=== PATIENT | male | born 1995 | race Caucasian/White ===

== ENCOUNTER 2018-08-02 00:33 | Inpatient (IN) ==
[2018-08-02] MEDS ORDERED: SODIUM CHLORIDE 0.9% 1,000 ML IV STA (00:46)
[2018-08-02 00:59] LABS: Basophils # 0.1 10*3/uL (0.0-0.2); Basophils % 0.7 % (0.0-0.8); Eosinophils # 0.1 10*3/uL (0.0-0.87); Eosinophils % 1.9 % (0.00-10.9); Hematocrit 46.8 VOL% (42.0-52.0); Immature Granulocytes % 0.3 %; Immature Granulocytes Absolute 0.02 #; Lymphocytes # 2.3 10*3/uL (1.4-4.0); Lymphocytes % 34.1 % (21.2-54.2); Mean Corpuscular HGB Conc 34.2 GM/DL (32-36); Mean Corpuscular Hemoglobin 30 PG (27-34); Mean Corpuscular Volume 88.6 FL (87-102); Monocytes # 0.6 10*3/uL (0.11-0.8); Monocytes % 8.4 % (1.7-12.7); Neutrophils # 3.6 10*3/uL (1.4-7.4); Neutrophils % 54.6 % (38.7-73.9); Platelet Count 193 T/CUMM (130-400); Red Blood Count 5.28 MC/CUMM (3.8-5.5); Red Cell Distribution Width 13.1 % (9.3-17.3); White Blood Count 6.7 T/CUMM (4-12)
[2018-08-02 01:19] LABS: Apearance,Urine CLOUDY (Clear); Bacteria,Urine Occasional /HPF (Few); Bilirubin,Urine Negative (Negative); Blood, Urine Small mg/dL (Negative); Glucose,Urine (UA) Negative (Negative); Granular Casts,Urine 17 /LPF (0-1); Hyaline Casts,Urine 5 /LPF (0-3); Ketones,Urine 5 mg/dL (Negative); Mucus,Urine Occasional /LPF (Occasional); Nitrite,Urine Negative (Negative); Protein,Urine >=500 MG/DL; RBC,Urine 1 /HPF (0-4); Squamous Epithelial Cell,Urine Occasional /HPF (0-10); Urine Color Amber (Yellow); Urine Specific Gravity 1.018 (1.001-1.035); WBC,Urine 1 /HPF (0-6)
[2018-08-02 01:22] LABS: Ammonia 77 UMOL/L (11-32)
[2018-08-02 01:24] LABS: Barbiturates Screen,Urine Negative (Negative); Benzodiazepines Screen,Urine Positive (Negative); Cannabinoid Screen,Urine Positive (Negative); Opiate Screen,Urine Negative (Negative); Phencyclidine Screen,Urine Negative (Negative)
[2018-08-02 01:27] LABS: Alanine Aminotransferase 23 U/L (16-61); Albumin 4.2 G/DL (3.4-5.0); Alkaline Phosphatase 75 U/L (45-117); Aspartate Amino Transferase 19 U/L (0-37); Blood Urea Nitrogen 13 MG/DL (7-18); Calcium 8.2 MG/DL (8.5-10.1); Glucose 165 MG/DL (74-106); Osmolality,Calculated 286.1 MOS/KG (273-304); Potassium 2.7 MMOL/L (3.5-5.1); Sodium 142 MMOL/L (136-145); Total Protein 7.6 G/DL (6.4-8.3)
[2018-08-02] MEDS ORDERED: MIDAZOLAM 10 MG/2 ML VIAL ONE (01:33)
[2018-08-02] MEDS ORDERED: MIDAZOLAM 2 MG/2 ML VIAL IV ONE (01:37)
[2018-08-02] MEDS ORDERED: PROPOFOL 1,000 MG/100 ML BOTTLE IV ONE (01:50)
[2018-08-02] MEDS ORDERED: ETOMIDATE 20 MG/10 ML VIAL IV STA (01:54)
[2018-08-02] MEDS ORDERED: ROCURONIUM 100 MG/10 ML VIAL IV STA (01:54)
[2018-08-02] MEDS: PROPOFOL 1,000 MG/100 ML BOTTLE IV SCH ×6 (01:56→21:19)
[2018-08-02 03:05] LABS: ABG Base Excess -1.6 MMOL/L (-2.5-2.5); ABG HCO3 23.1 MMOL/L (20-26); ABG Oxygen Saturation 99.4 % (95-100); ABG PCO2 39.4 MM HG (35-48); ABG PH 7.379 (7.35-7.45); ABG TCO2 19.6 MMOL/L (23-27)
[2018-08-02] MEDS ORDERED: VECURONIUM 10 MG VIAL IV ONE (03:08)
[2018-08-02] MEDS ORDERED: VECURONIUM 10 MG VIAL IV STA (03:09)
[2018-08-02] MEDS ORDERED: ALBUTEROL 2.5 MG/3 ML NEB RESP TX PRN (03:47)
[2018-08-02] MEDS ORDERED: MIDAZOLAM 2 MG/2 ML VIAL IV PRN (03:51)
[2018-08-02] MEDS ORDERED: PROPOFOL 1,000 MG/100 ML BOTTLE IV SCH (04:00)
[2018-08-02] MEDS: SODIUM CHLORIDE 0.9% 1,000 ML IV SCH ×3 (05:52→21:27)
[2018-08-02] MEDS: POTASSIUM CHLORIDE RIDER 10 MEQ in PREMIX 1 EACH IV PRN ×4 (06:34→09:55)
[2018-08-02 07:29] LABS: ABG Base Excess -0.9 MMOL/L (-2.5-2.5); ABG HCO3 23.7 MMOL/L (20-26); ABG Oxygen Saturation 98.8 % (95-100); ABG PCO2 48.9 MM HG (35-48); ABG PH 7.331 (7.35-7.45); ABG TCO2 22.2 MMOL/L (23-27)
[2018-08-02] MEDS: PANTOPRAZOLE 40 MG VIAL IV SCH (08:40)
[2018-08-02] MEDS: POTASSIUM CHLORIDE 20 MEQ/15 ML UDCUP PER TUBE SCH ×4 (09:14→20:07)
[2018-08-02 09:38] LABS: Calcium 9.2 MG/DL (8.5-10.1); Osmolality,Calculated 278.4 MOS/KG (273-304); Potassium 4.3 MMOL/L (3.5-5.1)
[2018-08-02] MEDS: OXcarbazepine 300 MG TABLET PER TUBE SCH (14:59)
[2018-08-02] MEDS: DIAZEPAM 5 MG TABLET PER TUBE SCH ×2 (16:29→20:07)
[2018-08-02] MEDS ORDERED: ACETAMINOPHEN 325 MG TABLET ONE (21:10)
[2018-08-02] MEDS: ACETAMINOPHEN 325 MG TABLET PO PRN (21:11)
[2018-08-03] MEDS: PROPOFOL 1,000 MG/100 ML BOTTLE IV SCH ×7 (00:06→22:32)
[2018-08-03] MEDS: ACETAMINOPHEN 325 MG TABLET PO PRN ×2 (00:36→15:54)
[2018-08-03 04:26] LABS: ABG HCO3 19.4 MMOL/L (20-26); ABG Oxygen Saturation 96.9 % (95-100); ABG PCO2 37.9 MM HG (35-48); ABG PH 7.326 (7.35-7.45); ABG PO2 100.4 MM HG (80-95); ABG TCO2 20.5 MMOL/L (23-27); Allen Test Positive; Pt O2 Delivery Device Ventilator
[2018-08-03 05:24] LABS: Basophils # 0.1 10*3/uL (0.0-0.2); Basophils % 0.5 % (0.0-0.8); Eosinophils % 0.1 % (0.00-10.9); Hematocrit 40.2 VOL% (42.0-52.0); Hemoglobin 13.4 GM/DL (14.0-18.0); Immature Granulocytes % 0.5 %; Immature Granulocytes Absolute 0.06 #; Lymphocytes # 1.2 10*3/uL (1.4-4.0); Lymphocytes % 11.2 % (21.2-54.2); Mean Corpuscular HGB Conc 33.3 GM/DL (32-36); Mean Corpuscular Hemoglobin 29 PG (27-34); Mean Corpuscular Volume 88.2 FL (87-102); Mean Platelet Volume 12.6 FL (9.6-12.0); Monocytes # 1.2 10*3/uL (0.11-0.8); Monocytes % 10.7 % (1.7-12.7); Neutrophils # 8.4 10*3/uL (1.4-7.4); Platelet Count 160 T/CUMM (130-400); Red Blood Count 4.56 MC/CUMM (3.8-5.5); Red Cell Distribution Width 13.4 % (9.3-17.3)
[2018-08-03] MEDS: SODIUM CHLORIDE 0.9% 1,000 ML IV SCH (05:26)
[2018-08-03 06:01] LABS: Albumin 3.6 G/DL (3.4-5.0); Calcium 8.8 MG/DL (8.5-10.1); Potassium 4.2 MMOL/L (3.5-5.1); Total Protein 6.9 G/DL (6.4-8.3)
[2018-08-03 06:10] LABS: Band Neutrophils 15 % (0-10); Lymphocytes 12 % (20-55); Platelet Estimate Normal; Segmented Neutrophils 66 % (50-85); Total Cells Counted 100
[2018-08-03] MEDS ORDERED: DEXTROSE 50% 25 GM/50 ML VIAL IV PRN (06:12)
[2018-08-03] MEDS: PANTOPRAZOLE 40 MG VIAL IV SCH (08:51)
[2018-08-03] MEDS: DIAZEPAM 5 MG TABLET PER TUBE SCH ×4 (08:51→22:31)
[2018-08-03] MEDS: OXcarbazepine 300 MG TABLET PER TUBE SCH (08:51)
[2018-08-03] MEDS ORDERED: cefTRIAXone 2,000 MG in SYRINGE 1 EACH IV SCH (09:30)
[2018-08-03] MEDS: DEXT 5% NACL 0.9% KCL 20 MEQ 20 MEQ/1,000 ML BAG IV SCH ×2 (09:38→20:53)
[2018-08-03] MEDS: ENOXAPARIN 40 MG/0.4 ML SYRINGE SUBCUT SCH (09:40)
[2018-08-03] MEDS: cefTRIAXone 2,000 MG in SYRINGE 1 EACH IV SCH (11:03)
[2018-08-03] MEDS ORDERED: GLUCAGON 1 MG VIAL IM PRN (11:06)
[2018-08-03 11:36] LABS: INR 1.3; PT Patient Result 13.8 SECS; Partial Thromboplastin Time 35.2 SECS (0-40)
[2018-08-03] MEDS: INSULIN REGULAR 100 UNIT/ML SUBCUT SCH ×2 (11:39→18:24)
[2018-08-03] MEDS: VANCOMYCIN INJ 1,000 MG in SODIUM CHLORIDE 0.9% 250 ML IV SCH (11:39)
[2018-08-03] MEDS: ACYCLOVIR INJ 500 MG in SODIUM CHLORIDE 0.9% 100 ML IV SCH ×2 (14:23→18:24)
[2018-08-04] MEDS: INSULIN REGULAR 100 UNIT/ML SUBCUT SCH ×5 (00:10→23:23)
[2018-08-04] MEDS: cefTRIAXone 2,000 MG in SYRINGE 1 EACH IV SCH ×3 (01:30→23:33)
[2018-08-04] MEDS: VANCOMYCIN INJ 1,000 MG in SODIUM CHLORIDE 0.9% 250 ML IV SCH ×2 (01:42→14:21)
[2018-08-04] MEDS: PROPOFOL 1,000 MG/100 ML BOTTLE IV SCH ×6 (02:28→23:24)
[2018-08-04] MEDS: ACYCLOVIR INJ 500 MG in SODIUM CHLORIDE 0.9% 100 ML IV SCH ×3 (04:29→18:20)
[2018-08-04] MEDS: ACETAMINOPHEN 325 MG TABLET PO PRN (06:10)
[2018-08-04] MEDS: DEXT 5% NACL 0.9% KCL 20 MEQ 20 MEQ/1,000 ML BAG IV SCH ×4 (06:47→21:15)
[2018-08-04 09:15] LABS: ABG HCO3 24.4 MMOL/L (20-26); ABG Oxygen Saturation 96.2 % (95-100); ABG PCO2 38.1 MM HG (35-48); ABG PH 7.413 (7.35-7.45); ABG PO2 80.1 MM HG (80-95); ABG TCO2 21.3 MMOL/L (23-27)
[2018-08-04 09:34] LABS: Basophils # 0.1 10*3/uL (0.0-0.2); Basophils % 0.8 % (0.0-0.8); Eosinophils # 0.3 10*3/uL (0.0-0.87); Eosinophils % 3.8 % (0.00-10.9); Hematocrit 38.6 VOL% (42.0-52.0); Hemoglobin 13.2 GM/DL (14.0-18.0); Immature Granulocytes % 0.5 %; Immature Granulocytes Absolute 0.04 #; Lymphocytes # 0.9 10*3/uL (1.4-4.0); Lymphocytes % 11.9 % (21.2-54.2); Mean Corpuscular HGB Conc 34.2 GM/DL (32-36); Mean Corpuscular Hemoglobin 30 PG (27-34); Mean Corpuscular Volume 88.1 FL (87-102); Mean Platelet Volume 12.1 FL (9.6-12.0); Monocytes % 13.1 % (1.7-12.7); Neutrophils # 5.2 10*3/uL (1.4-7.4); Neutrophils % 69.9 % (38.7-73.9); Platelet Count 115 T/CUMM (130-400); Red Blood Count 4.38 MC/CUMM (3.8-5.5); Red Cell Distribution Width 13.7 % (9.3-17.3); White Blood Count 7.4 T/CUMM (4-12)
[2018-08-04 10:00] LABS: Calcium 8.9 MG/DL (8.5-10.1)
[2018-08-04] MEDS: PANTOPRAZOLE 40 MG VIAL IV SCH (10:31)
[2018-08-04] MEDS: OXcarbazepine 300 MG TABLET PER TUBE SCH (10:32)
[2018-08-04] MEDS: DIAZEPAM 5 MG TABLET PER TUBE SCH ×4 (10:32→21:14)
[2018-08-04 12:56] LABS: Band Neutrophils 2 % (0-10); Eosinophils 8 % (0-10); Lymphocytes 9 % (20-55); Nucleated Red Blood Cells 1 (0-5); Segmented Neutrophils 58 % (50-85); Total Cells Counted 100
[2018-08-04 12:57] LABS: Platelet Estimate Adequate
[2018-08-04 14:31] LABS: Neutrophils,CSF 50 %; White Blood Cell,CSF 50 C/CUMM
[2018-08-04 14:32] LABS: Appearance,CSF Clear; Lymphocytes,CSF 50 %; Red Blood Cell,CSF < 1 C/CUMM
[2018-08-04] MEDS: DOXYCYCLINE HYCLATE INJ 100 MG in SODIUM CHLORIDE 0.9% 100 ML IV SCH ×2 (14:39→23:40)
[2018-08-05] MEDS: VANCOMYCIN INJ 1,000 MG in SODIUM CHLORIDE 0.9% 250 ML IV SCH ×4 (01:52→17:35)
[2018-08-05] MEDS: PROPOFOL 1,000 MG/100 ML BOTTLE IV SCH ×7 (01:57→21:41)
[2018-08-05 04:09] LABS: ABG Base Excess 1.3 MMOL/L (-2.5-2.5); ABG HCO3 25.6 MMOL/L (20-26); ABG Oxygen Saturation 98.2 % (95-100); ABG PCO2 44.4 MM HG (35-48); ABG PH 7.387 (7.35-7.45); ABG TCO2 23.8 MMOL/L (23-27); Allen Test Positive; Pt O2 Delivery Device Ventilator
[2018-08-05] MEDS: ACYCLOVIR INJ 500 MG in SODIUM CHLORIDE 0.9% 100 ML IV SCH ×3 (05:04→18:25)
[2018-08-05 05:11] LABS: Basophils # 0.1 10*3/uL (0.0-0.2); Basophils % 0.6 % (0.0-0.8); Eosinophils # 0.7 10*3/uL (0.0-0.87); Eosinophils % 8.3 % (0.00-10.9); Hematocrit 34.4 VOL% (42.0-52.0); Hemoglobin 11.3 GM/DL (14.0-18.0); Immature Granulocytes % 0.3 %; Immature Granulocytes Absolute 0.02 #; Lymphocytes # 1.2 10*3/uL (1.4-4.0); Mean Corpuscular HGB Conc 32.8 GM/DL (32-36); Mean Corpuscular Hemoglobin 29 PG (27-34); Mean Corpuscular Volume 89.1 FL (87-102); Mean Platelet Volume 12.8 FL (9.6-12.0); Monocytes # 0.8 10*3/uL (0.11-0.8); Monocytes % 9.9 % (1.7-12.7); Neutrophils # 5.2 10*3/uL (1.4-7.4); Neutrophils % 65.9 % (38.7-73.9); Platelet Count 111 T/CUMM (130-400); Red Blood Count 3.86 MC/CUMM (3.8-5.5); Red Cell Distribution Width 13.8 % (9.3-17.3); White Blood Count 7.9 T/CUMM (4-12)
[2018-08-05 05:27] LABS: Calcium 8.7 MG/DL (8.5-10.1); Osmolality,Calculated 286.8 MOS/KG (273-304); Potassium 3.9 MMOL/L (3.5-5.1)
[2018-08-05 05:32] LABS: Prealbumin 8.6 MG/DL (20-40)
[2018-08-05 05:34] LABS: Band Neutrophils 4 % (0-10); Eosinophils 12 % (0-10); Hypochromasia 1+; Lymphocytes 21 % (20-55); Platelet Estimate Decreased; Segmented Neutrophils 51 % (50-85); Total Cells Counted 100
[2018-08-05 05:38] LABS: Thyroid Stimulating Hormone 0.525 uIU/ml (0.358-3.74)
[2018-08-05 06:53] LABS: HIV Antigen/Antibody Result Nonreactive (Nonreactive); Hepatitis A Ab IgM Quant 0.15 Index; Hepatitis A Ab IgM Result Negative (Negative); Hepatitis B Core IgM Quant 0.14 Index; Hepatitis B Core IgM Result Negative (Negative); Hepatitis B Surface Ag Quant 0.52 Index; Hepatitis B Surface Ag Result Negative (Negative); Hepatitis C Virus Ab Quant 0.12 Index; Hepatitis C Virus Ab Result Negative (Negative)
[2018-08-05] MEDS: INSULIN REGULAR 100 UNIT/ML SUBCUT SCH ×4 (07:11→23:41)
[2018-08-05] MEDS: DEXT 5% NACL 0.9% KCL 20 MEQ 20 MEQ/1,000 ML BAG IV SCH ×3 (07:16→16:30)
[2018-08-05] MEDS: PANTOPRAZOLE 40 MG VIAL IV SCH (09:05)
[2018-08-05] MEDS: DIAZEPAM 5 MG TABLET PER TUBE SCH ×4 (09:05→21:39)
[2018-08-05] MEDS: ENOXAPARIN 40 MG/0.4 ML SYRINGE SUBCUT SCH (09:20)
[2018-08-05] MEDS ORDERED: MAGNESIUM SULF RIDER 4 GM in PREMIX 1 EACH IV ONE (10:00)
[2018-08-05] MEDS ORDERED: POTASSIUM PHOSPHATE 30 MMOL in SODIUM CHLORIDE 0.9% 250 ML IV ONE (11:00)
[2018-08-05] MEDS: cefTRIAXone 2,000 MG in SYRINGE 1 EACH IV SCH (12:00)
[2018-08-05] MEDS: DOXYCYCLINE HYCLATE INJ 100 MG in SODIUM CHLORIDE 0.9% 100 ML IV SCH (12:00)
[2018-08-06] MEDS: DOXYCYCLINE HYCLATE INJ 100 MG in SODIUM CHLORIDE 0.9% 100 ML IV SCH ×3 (00:30→23:37)
[2018-08-06] MEDS: DEXT 5% NACL 0.9% KCL 20 MEQ 20 MEQ/1,000 ML BAG IV SCH ×3 (00:34→18:55)
[2018-08-06] MEDS: PROPOFOL 1,000 MG/100 ML BOTTLE IV SCH ×6 (00:38→23:38)
[2018-08-06] MEDS: cefTRIAXone 2,000 MG in SYRINGE 1 EACH IV SCH ×2 (01:35→12:15)
[2018-08-06] MEDS: VANCOMYCIN INJ 1,000 MG in SODIUM CHLORIDE 0.9% 250 ML IV SCH ×3 (03:31→18:15)
[2018-08-06 03:37] LABS: ABG HCO3 25.3 MMOL/L (20-26); ABG Oxygen Saturation 99.1 % (95-100); ABG PCO2 48.1 MM HG (35-48); ABG PH 7.358 (7.35-7.45); ABG TCO2 24.3 MMOL/L (23-27); Allen Test Positive; Pt O2 Delivery Device Ventilator
[2018-08-06] MEDS: ACYCLOVIR INJ 500 MG in SODIUM CHLORIDE 0.9% 100 ML IV SCH ×3 (03:59→18:15)
[2018-08-06 04:10] LABS: Basophils # 0.1 10*3/uL (0.0-0.2); Basophils % 0.7 % (0.0-0.8); Eosinophils # 0.8 10*3/uL (0.0-0.87); Eosinophils % 10.7 % (0.00-10.9); Hematocrit 32.1 VOL% (42.0-52.0); Hemoglobin 10.4 GM/DL (14.0-18.0); Immature Granulocytes % 0.3 %; Immature Granulocytes Absolute 0.02 #; Lymphocytes # 1.3 10*3/uL (1.4-4.0); Lymphocytes % 18.4 % (21.2-54.2); Mean Corpuscular HGB Conc 32.4 GM/DL (32-36); Mean Corpuscular Hemoglobin 29 PG (27-34); Mean Corpuscular Volume 90.4 FL (87-102); Mean Platelet Volume 12.8 FL (9.6-12.0); Monocytes # 0.6 10*3/uL (0.11-0.8); Neutrophils # 4.3 10*3/uL (1.4-7.4); Neutrophils % 60.9 % (38.7-73.9); Platelet Count 132 T/CUMM (130-400); Red Blood Count 3.55 MC/CUMM (3.8-5.5); Red Cell Distribution Width 13.9 % (9.3-17.3); White Blood Count 7.1 T/CUMM (4-12)
[2018-08-06 04:39] LABS: Calcium 8.1 MG/DL (8.5-10.1); Osmolality,Calculated 286.7 MOS/KG (273-304); Potassium 4.4 MMOL/L (3.5-5.1)
[2018-08-06 04:48] LABS: Albumin 2.2 G/DL (3.4-5.0); Bilirubin,Total 0.4 MG/DL (0.2-1.0); Calcium 8.2 MG/DL (8.5-10.1); Osmolality,Calculated 286.7 MOS/KG (273-304); Potassium 4.4 MMOL/L (3.5-5.1); Total Protein 5.8 G/DL (6.4-8.3)
[2018-08-06] MEDS: INSULIN REGULAR 100 UNIT/ML SUBCUT SCH ×4 (06:34→23:24)
[2018-08-06] MEDS ORDERED: LIDOCAINE 2% 20 ML VIAL RESP TX ONE (06:59)
[2018-08-06] MEDS ORDERED: LIDOCAINE 1% 20 ML VIAL MISC INJ ONE (06:59)
[2018-08-06] MEDS: ENOXAPARIN 40 MG/0.4 ML SYRINGE SUBCUT SCH (09:00)
[2018-08-06] MEDS: PANTOPRAZOLE 40 MG VIAL IV SCH (09:00)
[2018-08-06] MEDS: PIPERACILLIN/TAZOBACTAM 3,375 MG in SODIUM CHLORIDE 0.9% 100 ML IV SCH ×2 (09:00→14:50)
[2018-08-06] MEDS: DIAZEPAM 5 MG TABLET NG SCH ×3 (09:00→20:22)
[2018-08-06] MEDS: QUEtiapine 25 MG TABLET PO SCH ×2 (10:40→20:22)
[2018-08-07] MEDS: PIPERACILLIN/TAZOBACTAM 3,375 MG in SODIUM CHLORIDE 0.9% 100 ML IV SCH ×3 (01:00→16:43)
[2018-08-07] MEDS: VANCOMYCIN INJ 1,000 MG in SODIUM CHLORIDE 0.9% 250 ML IV SCH ×3 (01:09→17:58)
[2018-08-07] MEDS: DEXT 5% NACL 0.9% KCL 20 MEQ 20 MEQ/1,000 ML BAG IV SCH (02:59)
[2018-08-07 03:02] LABS: ABG Base Excess 1.7 MMOL/L (-2.5-2.5); ABG Oxygen Saturation 98.8 % (95-100); ABG PCO2 42.5 MM HG (35-48); ABG PH 7.406 (7.35-7.45); ABG TCO2 23.9 MMOL/L (23-27); Allen Test Positive; Pt O2 Delivery Device Ventilator
[2018-08-07] MEDS: ACYCLOVIR INJ 500 MG in SODIUM CHLORIDE 0.9% 100 ML IV SCH ×3 (03:04→18:32)
[2018-08-07] MEDS: DIAZEPAM 5 MG TABLET NG SCH ×3 (03:04→14:18)
[2018-08-07] MEDS: PROPOFOL 1,000 MG/100 ML BOTTLE IV SCH ×4 (04:54→22:26)
[2018-08-07 05:00] LABS: Basophils % 0.6 % (0.0-0.8); Eosinophils # 0.8 10*3/uL (0.0-0.87); Eosinophils % 12.2 % (0.00-10.9); Hematocrit 31.4 VOL% (42.0-52.0); Hemoglobin 10.4 GM/DL (14.0-18.0); Immature Granulocytes % 1.1 %; Immature Granulocytes Absolute 0.07 #; Lymphocytes # 1.3 10*3/uL (1.4-4.0); Lymphocytes % 19.4 % (21.2-54.2); Mean Corpuscular HGB Conc 33.1 GM/DL (32-36); Mean Corpuscular Hemoglobin 30 PG (27-34); Mean Corpuscular Volume 89.5 FL (87-102); Mean Platelet Volume 11.9 FL (9.6-12.0); Monocytes # 0.8 10*3/uL (0.11-0.8); Monocytes % 12.8 % (1.7-12.7); Neutrophils # 3.5 10*3/uL (1.4-7.4); Neutrophils % 53.9 % (38.7-73.9); Platelet Count 179 T/CUMM (130-400); Red Blood Count 3.51 MC/CUMM (3.8-5.5); Red Cell Distribution Width 14.2 % (9.3-17.3); White Blood Count 6.5 T/CUMM (4-12)
[2018-08-07 05:20] LABS: Hypochromasia 1+; Platelet Estimate Adequate
[2018-08-07 05:21] LABS: Ovalocytes Slight
[2018-08-07 05:31] LABS: Albumin 2.2 G/DL (3.4-5.0); Bilirubin,Total 0.9 MG/DL (0.2-1.0); Calcium 8.2 MG/DL (8.5-10.1); Osmolality,Calculated 288.6 MOS/KG (273-304); Potassium 4.2 MMOL/L (3.5-5.1); Total Protein 5.9 G/DL (6.4-8.3)
[2018-08-07] MEDS: INSULIN REGULAR 100 UNIT/ML SUBCUT SCH ×4 (05:47→23:34)
[2018-08-07] MEDS: PANTOPRAZOLE 40 MG VIAL IV SCH (08:25)
[2018-08-07] MEDS: MAGNESIUM SULF RIDER 2 GM in PREMIX 1 EACH IV PRN ×2 (08:25→09:44)
[2018-08-07] MEDS: ENOXAPARIN 40 MG/0.4 ML SYRINGE SUBCUT SCH (08:25)
[2018-08-07] MEDS: QUEtiapine 25 MG TABLET PO SCH ×2 (08:25→21:02)
[2018-08-07] MEDS: ACETAMINOPHEN 325 MG TABLET PO PRN (08:43)
[2018-08-07] MEDS: DOXYCYCLINE HYCLATE INJ 100 MG in SODIUM CHLORIDE 0.9% 100 ML IV SCH ×2 (11:54→23:43)
[2018-08-07] MEDS ORDERED: DIAZEPAM 5 MG TABLET PO PRN (12:47)
[2018-08-08] MEDS: PIPERACILLIN/TAZOBACTAM 3,375 MG in SODIUM CHLORIDE 0.9% 100 ML IV SCH ×3 (00:49→16:46)
[2018-08-08] MEDS: VANCOMYCIN INJ 1,000 MG in SODIUM CHLORIDE 0.9% 250 ML IV SCH ×3 (01:00→17:58)
[2018-08-08] MEDS: PROPOFOL 1,000 MG/100 ML BOTTLE IV SCH ×5 (01:33→23:14)
[2018-08-08] MEDS: ACYCLOVIR INJ 500 MG in SODIUM CHLORIDE 0.9% 100 ML IV SCH (02:19)
[2018-08-08 04:36] LABS: ABG Base Excess 3.4 MMOL/L (-2.5-2.5); ABG HCO3 27.5 MMOL/L (20-26); ABG Oxygen Saturation 98.1 % (95-100); ABG PCO2 47.2 MM HG (35-48); ABG PH 7.396 (7.35-7.45); ABG TCO2 26.1 MMOL/L (23-27); Pt O2 Delivery Device Ventilator
[2018-08-08 05:39] LABS: Basophils # 0.1 10*3/uL (0.0-0.2); Basophils % 0.9 % (0.0-0.8); Eosinophils # 0.5 10*3/uL (0.0-0.87); Eosinophils % 9.3 % (0.00-10.9); Hematocrit 31.7 VOL% (42.0-52.0); Hemoglobin 10.7 GM/DL (14.0-18.0); Immature Granulocytes Absolute 0.23 #; Lymphocytes # 1.5 10*3/uL (1.4-4.0); Mean Corpuscular HGB Conc 33.8 GM/DL (32-36); Mean Corpuscular Hemoglobin 29 PG (27-34); Mean Corpuscular Volume 87.1 FL (87-102); Mean Platelet Volume 10.7 FL (9.6-12.0); Monocytes # 0.8 10*3/uL (0.11-0.8); Monocytes % 12.9 % (1.7-12.7); Neutrophils # 2.7 10*3/uL (1.4-7.4); Neutrophils % 46.9 % (38.7-73.9); Platelet Count 203 T/CUMM (130-400); Red Blood Count 3.64 MC/CUMM (3.8-5.5); Red Cell Distribution Width 13.8 % (9.3-17.3); White Blood Count 5.8 T/CUMM (4-12)
[2018-08-08] MEDS: INSULIN REGULAR 100 UNIT/ML SUBCUT SCH ×3 (05:59→17:58)
[2018-08-08 06:10] LABS: Albumin 2.4 G/DL (3.4-5.0); Bilirubin,Total 0.7 MG/DL (0.2-1.0); Calcium 8.6 MG/DL (8.5-10.1); Potassium 4.2 MMOL/L (3.5-5.1); Total Protein 6.2 G/DL (6.4-8.3)
[2018-08-08] MEDS: MAGNESIUM SULF RIDER 2 GM in PREMIX 1 EACH IV PRN (06:21)
[2018-08-08] MEDS: QUEtiapine 25 MG TABLET PO SCH ×2 (08:01→21:28)
[2018-08-08] MEDS: ENOXAPARIN 40 MG/0.4 ML SYRINGE SUBCUT SCH (08:01)
[2018-08-08] MEDS: ACETAMINOPHEN 325 MG TABLET PO PRN (08:01)
[2018-08-08] MEDS: PANTOPRAZOLE 40 MG VIAL IV SCH (08:01)
[2018-08-08] MEDS ORDERED: MORPHINE 4 MG/1 ML VIAL ONE (08:19)
[2018-08-08] MEDS: MORPHINE 4 MG/1 ML VIAL IV PRN ×2 (08:23→15:43)
[2018-08-08 11:10] LABS: ABG Base Excess 3.9 MMOL/L (-2.5-2.5); ABG HCO3 27.9 MMOL/L (20-26); ABG Oxygen Saturation 97.9 % (95-100); ABG PH 7.418 (7.35-7.45); ABG TCO2 25.8 MMOL/L (23-27)
[2018-08-08] MEDS: DOXYCYCLINE HYCLATE INJ 100 MG in SODIUM CHLORIDE 0.9% 100 ML IV SCH ×2 (11:47→23:07)
[2018-08-08 12:16] LABS: TB2 Ag Minus Result -0.01 IU/mL
[2018-08-08] MEDS ORDERED: LORazepam 2 MG/1 ML VIAL ONE (13:25)
[2018-08-08 14:21] LABS: Toxoplasma IgG Value > 900 IU/mL
[2018-08-08 22:36] LABS: Ehrlichia Chaffeensis (HME)IgG <1:64 titer (<1:64)
[2018-08-09] MEDS: PIPERACILLIN/TAZOBACTAM 3,375 MG in SODIUM CHLORIDE 0.9% 100 ML IV SCH ×2 (00:17→09:30)
[2018-08-09] MEDS: VANCOMYCIN INJ 1,000 MG in SODIUM CHLORIDE 0.9% 250 ML IV SCH ×3 (02:01→18:31)
[2018-08-09] MEDS: PROPOFOL 1,000 MG/100 ML BOTTLE IV SCH (03:12)
[2018-08-09 03:30] LABS: Basophils % 0.6 % (0.0-0.8); Eosinophils # 0.4 10*3/uL (0.0-0.87); Eosinophils % 5.2 % (0.00-10.9); Hematocrit 34.6 VOL% (42.0-52.0); Hemoglobin 11.6 GM/DL (14.0-18.0); Immature Granulocytes % 3.5 %; Immature Granulocytes Absolute 0.25 #; Lymphocytes # 1.7 10*3/uL (1.4-4.0); Lymphocytes % 23.6 % (21.2-54.2); Mean Corpuscular HGB Conc 33.5 GM/DL (32-36); Mean Corpuscular Hemoglobin 29 PG (27-34); Mean Corpuscular Volume 86.3 FL (87-102); Mean Platelet Volume 10.4 FL (9.6-12.0); Monocytes # 0.8 10*3/uL (0.11-0.8); Monocytes % 11.3 % (1.7-12.7); Neutrophils # 3.9 10*3/uL (1.4-7.4); Neutrophils % 55.8 % (38.7-73.9); Platelet Count 232 T/CUMM (130-400); Red Blood Count 4.01 MC/CUMM (3.8-5.5); Red Cell Distribution Width 13.6 % (9.3-17.3); White Blood Count 7.1 T/CUMM (4-12)
[2018-08-09 03:48] LABS: Albumin 2.6 G/DL (3.4-5.0); Bilirubin,Total 0.9 MG/DL (0.2-1.0); Calcium 9.1 MG/DL (8.5-10.1); Osmolality,Calculated 284.1 MOS/KG (273-304); Potassium 4.2 MMOL/L (3.5-5.1); Total Protein 6.6 G/DL (6.4-8.3)
[2018-08-09] MEDS: MAGNESIUM SULF RIDER 2 GM in PREMIX 1 EACH IV PRN (04:19)
[2018-08-09 05:42] LABS: ABG Base Excess 3.7 MMOL/L (-2.5-2.5); ABG HCO3 27.5 MMOL/L (20-26); ABG Oxygen Saturation 89.7 % (95-100); ABG PCO2 45.8 MM HG (35-48); ABG PO2 61.5 MM HG (80-95); ABG TCO2 25.6 MMOL/L (23-27); Allen Test Positive; Pt O2 Delivery Device Ventilator
[2018-08-09] MEDS: INSULIN REGULAR 100 UNIT/ML SUBCUT SCH ×5 (06:09→23:53)
[2018-08-09] MEDS: methylPREDNISolone SOD SUC 40 MG/1 ML VIAL IV SCH ×2 (07:12→18:47)
[2018-08-09 08:55] LABS: ABG Base Excess 3.6 MMOL/L (-2.5-2.5); ABG HCO3 27.5 MMOL/L (20-26); ABG Oxygen Saturation 93.7 % (95-100); ABG PCO2 41.7 MM HG (35-48); ABG PH 7.437 (7.35-7.45); ABG PO2 73.3 MM HG (80-95); ABG TCO2 24.5 MMOL/L (23-27)
[2018-08-09] MEDS: ENOXAPARIN 40 MG/0.4 ML SYRINGE SUBCUT SCH (09:28)
[2018-08-09] MEDS: PANTOPRAZOLE 40 MG VIAL IV SCH (09:28)
[2018-08-09] MEDS: QUEtiapine 25 MG TABLET PO SCH ×3 (09:28→20:28)
[2018-08-09 10:56] LABS: M. Tuberculosis PCR Result Negative (Negative); M. Tuberculosis PCR Source CSF
[2018-08-09 12:23] LABS: Apearance,Urine CLEAR (Clear); Bacteria,Urine Occasional /HPF (Few); Bilirubin,Urine Negative (Negative); Blood, Urine Negative (Negative); Glucose,Urine (UA) Negative (Negative); Ketones,Urine 20 mg/dL (Negative); Mucus,Urine Occasional /LPF (Occasional); Nitrite,Urine Negative (Negative); Protein,Urine Negative; RBC,Urine 9 /HPF (0-4); Urine Color Yellow (Yellow); Urine Specific Gravity 1.013 (1.001-1.035); Urine Urobilinogen < 2.0 EU/DL (0.2-1.0); WBC,Urine 3 /HPF (0-6)
[2018-08-09] MEDS: DOXYCYCLINE HYCLATE INJ 100 MG in SODIUM CHLORIDE 0.9% 100 ML IV SCH (13:32)
[2018-08-09 22:11] LABS: West Nile Virus Ab, IgG, CSF Negative (Negative); West Nile Virus Ab, IgM, CSF Negative (Negative)
[2018-08-10] MEDS: DOXYCYCLINE HYCLATE INJ 100 MG in SODIUM CHLORIDE 0.9% 100 ML IV SCH ×2 (00:28→13:45)
[2018-08-10] MEDS ORDERED: ONDANSETRON 4 MG/2 ML VIAL ONE (01:00)
[2018-08-10] MEDS: ONDANSETRON 4 MG/2 ML VIAL IV PRN ×2 (01:12→06:05)
[2018-08-10] MEDS: ALBUTEROL/IPRATROPIUM 3 ML NEB RESP TX PRN ×2 (01:14→04:44)
[2018-08-10] MEDS: VANCOMYCIN INJ 1,000 MG in SODIUM CHLORIDE 0.9% 250 ML IV SCH ×3 (02:07→17:52)
[2018-08-10 02:49] LABS: Basophils # 0.1 10*3/uL (0.0-0.2); Basophils % 0.5 % (0.0-0.8); Eosinophils % 0.1 % (0.00-10.9); Hematocrit 38.9 VOL% (42.0-52.0); Hemoglobin 13.4 GM/DL (14.0-18.0); Immature Granulocytes % 1.7 %; Immature Granulocytes Absolute 0.17 #; Lymphocytes # 1.6 10*3/uL (1.4-4.0); Lymphocytes % 15.8 % (21.2-54.2); Mean Corpuscular HGB Conc 34.4 GM/DL (32-36); Mean Corpuscular Hemoglobin 29 PG (27-34); Mean Corpuscular Volume 85.1 FL (87-102); Mean Platelet Volume 10.5 FL (9.6-12.0); Monocytes # 0.5 10*3/uL (0.11-0.8); Monocytes % 4.8 % (1.7-12.7); Neutrophils # 7.6 10*3/uL (1.4-7.4); Neutrophils % 77.1 % (38.7-73.9); Platelet Count 352 T/CUMM (130-400); Red Blood Count 4.57 MC/CUMM (3.8-5.5); White Blood Count 9.9 T/CUMM (4-12)
[2018-08-10 03:25] LABS: Calcium 10.2 MG/DL (8.5-10.1); Osmolality,Calculated 279.7 MOS/KG (273-304); Potassium 4.5 MMOL/L (3.5-5.1)
[2018-08-10] MEDS: INSULIN REGULAR 100 UNIT/ML SUBCUT SCH ×2 (06:04→13:43)
[2018-08-10] MEDS: methylPREDNISolone SOD SUC 40 MG/1 ML VIAL IV SCH ×2 (06:16→18:26)
[2018-08-10] MEDS: LACTATED RINGERS 1,000 ML IV SCH ×2 (07:54→17:21)
[2018-08-10] MEDS: ENOXAPARIN 40 MG/0.4 ML SYRINGE SUBCUT SCH (08:55)
[2018-08-10] MEDS: QUEtiapine 25 MG TABLET PO SCH ×2 (08:55→20:28)
[2018-08-10] MEDS: PANTOPRAZOLE 40 MG VIAL IV SCH (08:55)
[2018-08-10] MEDS: ACETAMINOPHEN 325 MG TABLET PO PRN (18:23)
[2018-08-11] MEDS: ONDANSETRON 4 MG/2 ML VIAL IV PRN (00:05)
[2018-08-11] MEDS: VANCOMYCIN INJ 1,000 MG in SODIUM CHLORIDE 0.9% 250 ML IV SCH ×3 (01:14→17:19)
[2018-08-11] MEDS: DOXYCYCLINE HYCLATE INJ 100 MG in SODIUM CHLORIDE 0.9% 100 ML IV SCH ×2 (01:14→13:01)
[2018-08-11] MEDS: LACTATED RINGERS 1,000 ML IV SCH ×4 (03:39→17:17)
[2018-08-11 03:41] LABS: Basophils # 0.1 10*3/uL (0.0-0.2); Basophils % 0.8 % (0.0-0.8); Eosinophils % 0.1 % (0.00-10.9); Hemoglobin 12.6 GM/DL (14.0-18.0); Immature Granulocytes Absolute 0.18 #; Lymphocytes % 22.5 % (21.2-54.2); Mean Corpuscular HGB Conc 32.3 GM/DL (32-36); Mean Corpuscular Hemoglobin 29 PG (27-34); Mean Corpuscular Volume 88.6 FL (87-102); Mean Platelet Volume 10.3 FL (9.6-12.0); Monocytes # 0.6 10*3/uL (0.11-0.8); Monocytes % 6.3 % (1.7-12.7); Neutrophils # 6.1 10*3/uL (1.4-7.4); Neutrophils % 68.3 % (38.7-73.9); Platelet Count 346 T/CUMM (130-400); Red Cell Distribution Width 12.6 % (9.3-17.3); White Blood Count 8.9 T/CUMM (4-12)
[2018-08-11 04:04] LABS: Calcium 9.5 MG/DL (8.5-10.1); Osmolality,Calculated 281.4 MOS/KG (273-304); Potassium 4.7 MMOL/L (3.5-5.1)
[2018-08-11] MEDS ORDERED: LORazepam 2 MG/1 ML VIAL ONE (04:40)
[2018-08-11] MEDS ORDERED: LORazepam 2 MG/1 ML VIAL IV ONE (04:40)
[2018-08-11] MEDS ORDERED: LORazepam 2 MG/1 ML VIAL IV PRN (05:01)
[2018-08-11] MEDS: ENOXAPARIN 40 MG/0.4 ML SYRINGE SUBCUT SCH (08:13)
[2018-08-11] MEDS: PANTOPRAZOLE 40 MG VIAL IV SCH (08:13)
[2018-08-11] MEDS: QUEtiapine 25 MG TABLET PO SCH ×2 (08:13→20:23)
[2018-08-11] MEDS: ACETAMINOPHEN 325 MG TABLET PO PRN (10:28)
[2018-08-11] MEDS: HydrOXYzine PAMOATE 25 MG CAPSULE PO SCH ×2 (14:11→20:23)
[2018-08-11] MEDS: OXcarbazepine 300 MG TABLET PO SCH (20:23)
[2018-08-12] MEDS: DOXYCYCLINE HYCLATE INJ 100 MG in SODIUM CHLORIDE 0.9% 100 ML IV SCH ×2 (01:27→11:54)
[2018-08-12] MEDS: LACTATED RINGERS 1,000 ML IV SCH ×4 (01:27→23:55)
[2018-08-12] MEDS ORDERED: ZIPRASIDONE 20 MG/1 ML VIAL IM ONE (01:36)
[2018-08-12 01:51] LABS: Barbiturates Screen,Urine Negative (Negative); Benzodiazepines Screen,Urine Positive (Negative); Cannabinoid Screen,Urine Positive (Negative); Opiate Screen,Urine Negative (Negative); Phencyclidine Screen,Urine Negative (Negative)
[2018-08-12] MEDS: VANCOMYCIN INJ 1,000 MG in SODIUM CHLORIDE 0.9% 250 ML IV SCH ×2 (03:09→09:03)
[2018-08-12] MEDS: QUEtiapine 25 MG TABLET PO SCH ×2 (08:11→20:20)
[2018-08-12] MEDS: HydrOXYzine PAMOATE 25 MG CAPSULE PO SCH ×3 (08:11→20:20)
[2018-08-12] MEDS: ENOXAPARIN 40 MG/0.4 ML SYRINGE SUBCUT SCH (08:12)
[2018-08-12] MEDS: PANTOPRAZOLE 40 MG VIAL IV SCH (08:12)
[2018-08-12] MEDS: OXcarbazepine 300 MG TABLET PO SCH (20:21)
[2018-08-13 04:46] LABS: Basophils # 0.1 10*3/uL (0.0-0.2); Basophils % 0.8 % (0.0-0.8); Eosinophils # 0.2 10*3/uL (0.0-0.87); Eosinophils % 2.8 % (0.00-10.9); Hematocrit 35.1 VOL% (42.0-52.0); Immature Granulocytes % 0.7 %; Immature Granulocytes Absolute 0.05 #; Mean Corpuscular HGB Conc 34.2 GM/DL (32-36); Mean Corpuscular Hemoglobin 29 PG (27-34); Mean Corpuscular Volume 85.2 FL (87-102); Mean Platelet Volume 10.4 FL (9.6-12.0); Monocytes # 0.6 10*3/uL (0.11-0.8); Monocytes % 8.4 % (1.7-12.7); Neutrophils # 3.3 10*3/uL (1.4-7.4); Neutrophils % 45.3 % (38.7-73.9); Platelet Count 268 T/CUMM (130-400); Red Blood Count 4.12 MC/CUMM (3.8-5.5); Red Cell Distribution Width 12.8 % (9.3-17.3); White Blood Count 7.2 T/CUMM (4-12)
[2018-08-13 05:22] LABS: Bilirubin,Total 0.7 MG/DL (0.2-1.0); Calcium 9.4 MG/DL (8.5-10.1); Osmolality,Calculated 278.5 MOS/KG (273-304); Potassium 3.6 MMOL/L (3.5-5.1); Total Protein 6.8 G/DL (6.4-8.3)
[2018-08-13] MEDS: MAGNESIUM SULF RIDER 2 GM in PREMIX 1 EACH IV PRN (06:35)
[2018-08-13] MEDS: PANTOPRAZOLE 40 MG VIAL IV SCH (08:04)
[2018-08-13] MEDS: QUEtiapine 25 MG TABLET PO SCH ×2 (08:05→20:41)
[2018-08-13] MEDS: HydrOXYzine PAMOATE 25 MG CAPSULE PO SCH ×3 (08:05→20:41)
[2018-08-13] MEDS: ENOXAPARIN 40 MG/0.4 ML SYRINGE SUBCUT SCH (08:05)
[2018-08-13] MEDS: LACTATED RINGERS 1,000 ML IV SCH (08:10)
[2018-08-13] MEDS: levETIRAcetam 500 MG TABLET PO SCH ×2 (08:15→20:41)
[2018-08-13] MEDS: PANTOPRAZOLE 40 MG TABLET PO SCH (08:15)
[2018-08-13] MEDS: OXcarbazepine 300 MG TABLET PO SCH (20:41)
[2018-08-14] MEDS ORDERED: ZALEPLON 5 MG CAPSULE PO PRN (03:31)
[2018-08-14] MEDS: PANTOPRAZOLE 40 MG TABLET PO SCH (09:05)
[2018-08-14] MEDS: levETIRAcetam 500 MG TABLET PO SCH ×2 (09:05→21:13)
[2018-08-14] MEDS: HydrOXYzine PAMOATE 25 MG CAPSULE PO SCH ×3 (09:05→21:13)
[2018-08-14] MEDS: QUEtiapine 25 MG TABLET PO SCH ×2 (09:06→21:13)
[2018-08-14] MEDS ORDERED: traMADol 50 MG TABLET PO PRN (12:07)
[2018-08-14] MEDS ORDERED: traZODone 50 MG TABLET PO SCH (21:00)
[2018-08-14] MEDS ORDERED: MELATONIN 3 MG TABLET PO SCH (21:00)
[2018-08-14] MEDS: OXcarbazepine 300 MG TABLET PO SCH (21:14)
[2018-08-15] MEDS: QUEtiapine 25 MG TABLET PO SCH (09:09)
[2018-08-15] MEDS: HydrOXYzine PAMOATE 25 MG CAPSULE PO SCH (09:10)
[2018-08-15] MEDS: PANTOPRAZOLE 40 MG TABLET PO SCH (09:11)
[2018-08-15] MEDS: levETIRAcetam 500 MG TABLET PO SCH (09:11)
[2018-08-15 12:03] VITALS: BP 106/67
== END 2018-08-15 16:18 | DRG 53 ==
LOC: N.ED 00:33 → SUATTDRO 03:47 → N.EDINP 03:47 → N.ICU 04:10 → N.5E 08-13 09:19
PROVIDERS: ADMIT Internal Medicine; ATTEND Hospitalist

== ENCOUNTER 2018-09-15 20:44 | Observation (INO) ==
[2018-09-15] MEDS ORDERED: SODIUM CHLORIDE 0.9% 500 ML IV STA (21:10)
[2018-09-15] MEDS ORDERED: LORazepam 2 MG/1 ML VIAL IV STA (21:10)
[2018-09-15] MEDS ORDERED: LORazepam 2 MG/1 ML VIAL ONE (21:11)
[2018-09-15 22:00] LABS: Basophils # 0.1 10*3/uL (0.0-0.2); Basophils % 1.4 % (0.0-0.8); Eosinophils # 0.7 10*3/uL (0.0-0.87); Eosinophils % 10.3 % (0.00-10.9); Hemoglobin 12.6 GM/DL (14.0-18.0); Immature Granulocytes % 0.3 %; Immature Granulocytes Absolute 0.02 #; Lymphocytes % 29.5 % (21.2-54.2); Mean Corpuscular HGB Conc 33.2 GM/DL (32-36); Mean Corpuscular Hemoglobin 30 PG (27-34); Mean Platelet Volume 11.7 FL (9.6-12.0); Monocytes # 0.6 10*3/uL (0.11-0.8); Monocytes % 8.1 % (1.7-12.7); Neutrophils # 3.5 10*3/uL (1.4-7.4); Neutrophils % 50.4 % (38.7-73.9); Platelet Count 184 T/CUMM (130-400); Red Blood Count 4.27 MC/CUMM (3.8-5.5); Red Cell Distribution Width 13.4 % (9.3-17.3); White Blood Count 6.9 T/CUMM (4-12)
[2018-09-15 22:01] LABS: Barbiturates Screen,Urine Negative (Negative); Benzodiazepines Screen,Urine Negative (Negative); Cannabinoid Screen,Urine Positive (Negative); Opiate Screen,Urine Negative (Negative); Phencyclidine Screen,Urine Negative (Negative)
[2018-09-15 22:02] LABS: Apearance,Urine CLEAR (Clear); Bilirubin,Urine Negative (Negative); Blood, Urine Negative (Negative); Glucose,Urine (UA) Negative (Negative); Ketones,Urine Negative (Negative); Mucus,Urine Occasional /LPF (Occasional); Nitrite,Urine Negative (Negative); Protein,Urine 30 MG/DL; RBC,Urine <1 /HPF (0-4); Urine Color Yellow (Yellow); Urine Specific Gravity 1.011 (1.001-1.035); WBC,Urine 1 /HPF (0-6)
[2018-09-15] MEDS ORDERED: ONDANSETRON 4 MG/2 ML VIAL IV PRN (22:03)
[2018-09-15] MEDS ORDERED: ACETAMINOPHEN 325 MG TABLET PO PRN (22:03)
[2018-09-15] MEDS ORDERED: LORazepam 2 MG/1 ML VIAL IV PRN (22:15)
[2018-09-15 22:23] LABS: Alanine Aminotransferase 34 U/L (16-61); Albumin 4.2 G/DL (3.4-5.0); Alkaline Phosphatase 73 U/L (45-117); Aspartate Amino Transferase 19 U/L (0-37); Blood Urea Nitrogen 6 MG/DL (7-18); Calcium 9.1 MG/DL (8.5-10.1); Glucose 99 MG/DL (74-106); Osmolality,Calculated 276.4 MOS/KG (273-304); Potassium 3.6 MMOL/L (3.5-5.1); Sodium 140 MMOL/L (136-145); Total Protein 7.7 G/DL (6.4-8.3)
[2018-09-16] MEDS: SODIUM CHLORIDE 0.9% 1,000 ML IV SCH ×4 (00:08→23:28)
[2018-09-16] MEDS: OXcarbazepine 300 MG TABLET PO SCH ×3 (00:52→21:12)
[2018-09-16] MEDS: risperiDONE 1 MG TABLET PO SCH ×3 (00:52→21:12)
[2018-09-16] MEDS: rOPINIRole 0.25 MG TABLET PO SCH ×2 (00:52→21:11)
[2018-09-16 05:57] LABS: Calcium 8.7 MG/DL (8.5-10.1); Osmolality,Calculated 275.4 MOS/KG (273-304); Potassium 3.7 MMOL/L (3.5-5.1)
[2018-09-16] MEDS: MAGNESIUM OXIDE 400 MG TABLET PO SCH ×2 (09:11→21:13)
[2018-09-16] MEDS: levETIRAcetam 500 MG TABLET PO SCH ×2 (09:15→21:12)
[2018-09-16] MEDS: ENOXAPARIN 40 MG/0.4 ML SYRINGE SUBCUT SCH (09:25)
[2018-09-16] MEDS: NICOTINE 14 MG/24 HR PATCH TRANSDERM SCH (11:22)
[2018-09-16] MEDS: levETIRAcetam 250 MG TABLET PO SCH ×2 (11:22→21:11)
[2018-09-17] MEDS: SODIUM CHLORIDE 0.9% 1,000 ML IV SCH (06:46)
[2018-09-17 07:21] VITALS: BP 110/66
[2018-09-17] MEDS: MAGNESIUM OXIDE 400 MG TABLET PO SCH (08:11)
[2018-09-17] MEDS: OXcarbazepine 300 MG TABLET PO SCH (08:12)
[2018-09-17] MEDS: risperiDONE 1 MG TABLET PO SCH (08:13)
[2018-09-17] MEDS: NICOTINE 14 MG/24 HR PATCH TRANSDERM SCH (08:14)
[2018-09-17] MEDS: levETIRAcetam 500 MG TABLET PO SCH (08:14)
[2018-09-17] MEDS: levETIRAcetam 250 MG TABLET PO SCH (08:14)
[2018-09-17] MEDS: ENOXAPARIN 40 MG/0.4 ML SYRINGE SUBCUT SCH (08:15)
== END 2018-09-17 09:59 | disposition home or self-care (01) ==
LOC: N.ED 20:44 → N.EDINP 20:44 → N.5E 23:26
PROVIDERS: ADMIT Internal Medicine; ATTEND Internal Medicine

== ENCOUNTER 2018-09-23 04:19 | Inpatient (IN) ==
[2018-09-23 05:31] LABS: Hematocrit 41.2 VOL% (42.0-52.0); Hemoglobin 13.9 GM/DL (14.0-18.0); Mean Corpuscular Hemoglobin 30 PG (27-34); Mean Corpuscular Volume 87.8 FL (87-102); Red Blood Count 4.69 MC/CUMM (3.8-5.5); White Blood Count 7.5 T/CUMM (4-12)
[2018-09-23 05:32] LABS: Basophils # 0.1 10*3/uL (0.0-0.2); Basophils % 1.3 % (0.0-0.8); Eosinophils # 0.5 10*3/uL (0.0-0.87); Eosinophils % 6.5 % (0.00-10.9); Immature Granulocytes % 0.4 %; Immature Granulocytes Absolute 0.03 #; Lymphocytes # 1.9 10*3/uL (1.4-4.0); Lymphocytes % 25.1 % (21.2-54.2); Mean Corpuscular HGB Conc 33.7 GM/DL (32-36); Mean Platelet Volume 12.5 FL (9.6-12.0); Monocytes # 0.7 10*3/uL (0.11-0.8); Monocytes % 8.9 % (1.7-12.7); Neutrophils # 4.4 10*3/uL (1.4-7.4); Neutrophils % 57.8 % (38.7-73.9); Platelet Count 183 T/CUMM (130-400); Red Cell Distribution Width 13.2 % (9.3-17.3)
[2018-09-23 05:42] LABS: Alanine Aminotransferase 25 U/L (16-61); Alkaline Phosphatase 77 U/L (45-117); Aspartate Amino Transferase 12 U/L (0-37); Blood Urea Nitrogen 9 MG/DL (7-18); Calcium 10.4 MG/DL (8.5-10.1); Glucose 103 MG/DL (74-106); Osmolality,Calculated 273.7 MOS/KG (273-304); Potassium 3.5 MMOL/L (3.5-5.1); Sodium 138 MMOL/L (136-145); Total Protein 8.7 G/DL (6.4-8.3)
[2018-09-23 05:50] LABS: Hypochromasia 1+; Platelet Estimate Adequate
[2018-09-23 07:05] LABS: Amorphous Crystals,Urine Few /HPF (Few); Apearance,Urine Slightly Hazy (Clear); Bilirubin,Urine Negative (Negative); Blood, Urine Negative (Negative); Glucose,Urine (UA) Negative (Negative); Ketones,Urine 5 mg/dL (Negative); Nitrite,Urine Negative (Negative); Protein,Urine Negative; RBC,Urine 1 /HPF (0-4); Urine Color Yellow (Yellow); Urine Specific Gravity 1.009 (1.001-1.035); Urine Urobilinogen < 2.0 EU/DL (0.2-1.0); WBC,Urine <1 /HPF (0-6)
[2018-09-23 07:11] LABS: Barbiturates Screen,Urine Negative (Negative); Benzodiazepines Screen,Urine Negative (Negative); Cannabinoid Screen,Urine Positive (Negative); Opiate Screen,Urine Negative (Negative); Phencyclidine Screen,Urine Negative (Negative)
[2018-09-23 07:59] LABS: Lactic Acid 0.9 MMOL/L (0.4-2.0)
[2018-09-23] MEDS ORDERED: levETIRAcetam 500 MG/5 ML VIAL IV ONE (08:20)
[2018-09-23] MEDS ORDERED: ACETAMINOPHEN 325 MG TABLET PO PRN (09:02)
[2018-09-23] MEDS ORDERED: ONDANSETRON 4 MG/2 ML VIAL IV PRN (09:02)
[2018-09-23] MEDS ORDERED: OXcarbazepine 300 MG TABLET PO SCH (09:15)
[2018-09-23] MEDS: SODIUM CHLORIDE 0.9% 1,000 ML IV SCH ×2 (10:22→17:13)
[2018-09-23] MEDS: LORazepam 2 MG/1 ML VIAL IV PRN (11:16)
[2018-09-23] MEDS: risperiDONE 1 MG TABLET PO SCH (20:52)
[2018-09-23] MEDS: OXcarbazepine 300 MG TABLET PO SCH (20:53)
[2018-09-23] MEDS ORDERED: rOPINIRole 0.25 MG TABLET PO SCH (21:00)
[2018-09-23] MEDS ORDERED: levETIRAcetam 500 MG TABLET PO SCH (21:00)
[2018-09-23] MEDS ORDERED: QUEtiapine 25 MG TABLET PO SCH (21:00)
[2018-09-24] MEDS: SODIUM CHLORIDE 0.9% 1,000 ML IV SCH ×2 (01:15→08:33)
[2018-09-24] MEDS: LORazepam 2 MG/1 ML VIAL IV PRN (04:17)
[2018-09-24 05:23] LABS: Basophils # 0.1 10*3/uL (0.0-0.2); Basophils % 1.6 % (0.0-0.8); Eosinophils # 0.8 10*3/uL (0.0-0.87); Eosinophils % 14.1 % (0.00-10.9); Hematocrit 36.4 VOL% (42.0-52.0); Hemoglobin 12.3 GM/DL (14.0-18.0); Immature Granulocytes % 0.4 %; Immature Granulocytes Absolute 0.02 #; Lymphocytes # 2.3 10*3/uL (1.4-4.0); Lymphocytes % 40.4 % (21.2-54.2); Mean Corpuscular HGB Conc 33.8 GM/DL (32-36); Mean Corpuscular Hemoglobin 30 PG (27-34); Mean Platelet Volume 11.5 FL (9.6-12.0); Monocytes # 0.5 10*3/uL (0.11-0.8); Monocytes % 8.9 % (1.7-12.7); Neutrophils % 34.6 % (38.7-73.9); Platelet Count 178 T/CUMM (130-400); Red Blood Count 4.09 MC/CUMM (3.8-5.5); Red Cell Distribution Width 13.2 % (9.3-17.3); White Blood Count 5.6 T/CUMM (4-12)
[2018-09-24 05:45] LABS: Atypical Lymphocytes Few; Eosinophils 16 % (0-10); Hypochromasia 1+; Lymphocytes 42 % (20-55); Platelet Estimate Adequate; Segmented Neutrophils 35 % (50-85); Total Cells Counted 100
[2018-09-24 05:53] LABS: Albumin 3.9 G/DL (3.4-5.0); Bilirubin,Total 0.8 MG/DL (0.2-1.0); Calcium 9.2 MG/DL (8.5-10.1); Osmolality,Calculated 276.4 MOS/KG (273-304); Potassium 3.6 MMOL/L (3.5-5.1); Risk Ratio 2.49; Total Protein 7.1 G/DL (6.4-8.3); VLDL CHOLESTEROL 6.6 MG/DL
[2018-09-24] MEDS: OXcarbazepine 300 MG TABLET PO SCH (08:32)
[2018-09-24] MEDS: risperiDONE 1 MG TABLET PO SCH (08:33)
[2018-09-24] MEDS ORDERED: MAGNESIUM SULF RIDER 2 GM in PREMIX 1 EACH IV PRN (08:53)
[2018-09-24] MEDS ORDERED: MAGNESIUM SULF RIDER 4 GM in PREMIX 1 EACH IV PRN (08:53)
[2018-09-24] MEDS ORDERED: PANTOPRAZOLE 40 MG TABLET PO SCH (09:00)
[2018-09-24 14:00] VITALS: BP 137/92
== END 2018-09-24 13:53 | disposition home or self-care (01) | DRG 53 ==
LOC: N.ED 04:19 → N.EDINP 09:13 → N.5E 09:42
PROVIDERS: ADMIT Internal Medicine; ATTEND Internal Medicine

== ENCOUNTER 2018-09-29 09:40 | Inpatient (IN) ==
[2018-09-29] MEDS ORDERED: SODIUM CHLORIDE 0.9% 1,000 ML IV STA (10:18)
[2018-09-29] MEDS ORDERED: LORazepam 2 MG/1 ML VIAL IV STA (10:18)
[2018-09-29 10:27] LABS: Basophils # 0.1 10*3/uL (0.0-0.2); Basophils % 1.3 % (0.0-0.8); Eosinophils # 0.4 10*3/uL (0.0-0.87); Eosinophils % 5.7 % (0.00-10.9); Hematocrit 40.6 VOL% (42.0-52.0); Hemoglobin 13.9 GM/DL (14.0-18.0); Immature Granulocytes % 0.3 %; Immature Granulocytes Absolute 0.02 #; Lymphocytes # 1.9 10*3/uL (1.4-4.0); Lymphocytes % 26.6 % (21.2-54.2); Mean Corpuscular HGB Conc 34.2 GM/DL (32-36); Mean Corpuscular Hemoglobin 30 PG (27-34); Mean Corpuscular Volume 87.1 FL (87-102); Mean Platelet Volume 11.6 FL (9.6-12.0); Monocytes # 0.5 10*3/uL (0.11-0.8); Monocytes % 7.5 % (1.7-12.7); Neutrophils # 4.1 10*3/uL (1.4-7.4); Neutrophils % 58.6 % (38.7-73.9); Platelet Count 205 T/CUMM (130-400); Red Blood Count 4.66 MC/CUMM (3.8-5.5)
[2018-09-29 10:39] LABS: Apearance,Urine CLEAR (Clear); Bacteria,Urine Occasional /HPF (Few); Bilirubin,Urine Negative (Negative); Blood, Urine Negative (Negative); Glucose,Urine (UA) Negative (Negative); Ketones,Urine Negative (Negative); Nitrite,Urine Negative (Negative); Protein,Urine Negative; RBC,Urine <1 /HPF (0-4); Sperm,Urine Occasional /HPF (Negative); Urine Color Yellow (Yellow); Urine Specific Gravity 1.009 (1.001-1.035); Urine Urobilinogen < 2.0 EU/DL (0.2-1.0); WBC,Urine 1 /HPF (0-6)
[2018-09-29 10:41] LABS: Alanine Aminotransferase 23 U/L (16-61); Albumin 4.8 G/DL (3.4-5.0); Alkaline Phosphatase 72 U/L (45-117); Aspartate Amino Transferase 14 U/L (0-37); Bilirubin,Total < 0.39 MG/DL (0.2-1.0); Blood Urea Nitrogen 11 MG/DL (7-18); Calcium 9.8 MG/DL (8.5-10.1); Glucose 79 MG/DL (74-106); Potassium 4.1 MMOL/L (3.5-5.1); Sodium 136 MMOL/L (136-145); Total Protein 8.6 G/DL (6.4-8.3); Troponin I < 0.015 NG/ML (0.00-0.045)
[2018-09-29 10:45] LABS: PT Patient Result 10.9 SECS
[2018-09-29 11:17] LABS: Barbiturates Screen,Urine Negative (Negative); Benzodiazepines Screen,Urine Negative (Negative); Cannabinoid Screen,Urine Positive (Negative); Opiate Screen,Urine Negative (Negative); Phencyclidine Screen,Urine Negative (Negative)
[2018-09-29] MEDS ORDERED: ACETAMINOPHEN 325 MG TABLET PO PRN (13:49)
[2018-09-29] MEDS ORDERED: ONDANSETRON 4 MG/2 ML VIAL IV PRN (13:49)
[2018-09-29] MEDS ORDERED: LORazepam 2 MG/1 ML VIAL IV PRN (14:06)
[2018-09-29] MEDS ORDERED: INFLUENZA VIRUS VACCINE 0.5 ML SYRINGE IM ONE (15:13)
[2018-09-29] MEDS: LORazepam 0.5 MG TABLET PO PRN (15:44)
[2018-09-29] MEDS: SODIUM CHLORIDE 0.9% 1,000 ML IV SCH (15:52)
[2018-09-29] MEDS: levETIRAcetam 500 MG TABLET PO SCH (21:06)
[2018-09-29] MEDS: risperiDONE 1 MG TABLET PO SCH (21:06)
[2018-09-29] MEDS: rOPINIRole 0.25 MG TABLET PO SCH (21:06)
[2018-09-29] MEDS: QUEtiapine 25 MG TABLET PO SCH (21:07)
[2018-09-30] MEDS: SODIUM CHLORIDE 0.9% 1,000 ML IV SCH (03:46)
[2018-09-30 04:40] LABS: Basophils # 0.1 10*3/uL (0.0-0.2); Basophils % 1.5 % (0.0-0.8); Eosinophils # 0.9 10*3/uL (0.0-0.87); Eosinophils % 13.4 % (0.00-10.9); Hematocrit 41.4 VOL% (42.0-52.0); Hemoglobin 13.3 GM/DL (14.0-18.0); Immature Granulocytes % 0.1 %; Immature Granulocytes Absolute 0.01 #; Lymphocytes # 2.9 10*3/uL (1.4-4.0); Lymphocytes % 43.4 % (21.2-54.2); Mean Corpuscular HGB Conc 32.1 GM/DL (32-36); Mean Corpuscular Hemoglobin 29 PG (27-34); Mean Corpuscular Volume 90.2 FL (87-102); Mean Platelet Volume 12.1 FL (9.6-12.0); Monocytes # 0.4 10*3/uL (0.11-0.8); Monocytes % 6.5 % (1.7-12.7); Neutrophils # 2.4 10*3/uL (1.4-7.4); Neutrophils % 35.1 % (38.7-73.9); Platelet Count 214 T/CUMM (130-400); Red Blood Count 4.59 MC/CUMM (3.8-5.5); Red Cell Distribution Width 13.1 % (9.3-17.3); White Blood Count 6.8 T/CUMM (4-12)
[2018-09-30] MEDS: LORazepam 0.5 MG TABLET PO PRN (04:55)
[2018-09-30 05:13] LABS: Atypical Lymphocytes Few; Eosinophils 13 % (0-10); Hypochromasia 1+; Lymphocytes 58 % (20-55); Platelet Estimate Adequate; Segmented Neutrophils 26 % (50-85); Total Cells Counted 100
[2018-09-30 05:33] LABS: Calcium 9.4 MG/DL (8.5-10.1); Osmolality,Calculated 274.5 MOS/KG (273-304); Potassium 3.9 MMOL/L (3.5-5.1)
[2018-09-30] MEDS: levETIRAcetam 500 MG TABLET PO SCH ×2 (09:12→20:28)
[2018-09-30] MEDS: risperiDONE 1 MG TABLET PO SCH ×2 (09:13→20:28)
[2018-09-30] MEDS: PANTOPRAZOLE 40 MG TABLET PO SCH (09:14)
[2018-09-30] MEDS ORDERED: LORazepam 2 MG/1 ML VIAL IV ONE (11:00)
[2018-09-30] MEDS: SERTRALINE 25 MG TABLET PO SCH (14:38)
[2018-09-30] MEDS: CLORAZEPATE 3.75 MG TABLET PO SCH (16:52)
[2018-09-30] MEDS: rOPINIRole 0.25 MG TABLET PO SCH (20:28)
[2018-09-30] MEDS: QUEtiapine 25 MG TABLET PO SCH (20:28)
[2018-10-01] MEDS: CLORAZEPATE 3.75 MG TABLET PO SCH ×5 (00:27→23:36)
[2018-10-01 05:37] LABS: Basophils # 0.1 10*3/uL (0.0-0.2); Basophils % 1.4 % (0.0-0.8); Eosinophils # 0.9 10*3/uL (0.0-0.87); Eosinophils % 13.3 % (0.00-10.9); Immature Granulocytes % 0.3 %; Immature Granulocytes Absolute 0.02 #; Lymphocytes # 2.8 10*3/uL (1.4-4.0); Lymphocytes % 39.9 % (21.2-54.2); Mean Corpuscular HGB Conc 33.3 GM/DL (32-36); Mean Corpuscular Hemoglobin 30 PG (27-34); Mean Corpuscular Volume 88.4 FL (87-102); Mean Platelet Volume 12.3 FL (9.6-12.0); Monocytes # 0.6 10*3/uL (0.11-0.8); Monocytes % 8.5 % (1.7-12.7); Neutrophils # 2.5 10*3/uL (1.4-7.4); Neutrophils % 36.6 % (38.7-73.9); Platelet Count 203 T/CUMM (130-400); Red Blood Count 4.41 MC/CUMM (3.8-5.5); Red Cell Distribution Width 12.9 % (9.3-17.3); White Blood Count 6.9 T/CUMM (4-12)
[2018-10-01] MEDS: SODIUM CHLORIDE 0.9% 1,000 ML IV SCH ×2 (05:43→20:43)
[2018-10-01 05:50] LABS: Calcium 9.5 MG/DL (8.5-10.1); Osmolality,Calculated 275.5 MOS/KG (273-304); Potassium 3.9 MMOL/L (3.5-5.1)
[2018-10-01 06:22] LABS: Atypical Lymphocytes Few; Eosinophils 18 % (0-10); Hypochromasia 1+; Lymphocytes 38 % (20-55); Platelet Estimate Adequate; Segmented Neutrophils 37 % (50-85); Total Cells Counted 100
[2018-10-01] MEDS: SERTRALINE 25 MG TABLET PO SCH (08:48)
[2018-10-01] MEDS: levETIRAcetam 500 MG TABLET PO SCH ×2 (08:48→20:40)
[2018-10-01] MEDS: PANTOPRAZOLE 40 MG TABLET PO SCH (08:48)
[2018-10-01] MEDS: risperiDONE 1 MG TABLET PO SCH ×2 (08:48→20:40)
[2018-10-01] MEDS: rOPINIRole 0.25 MG TABLET PO SCH (20:40)
[2018-10-01] MEDS: QUEtiapine 25 MG TABLET PO SCH (20:41)
[2018-10-02] MEDS: CLORAZEPATE 3.75 MG TABLET PO SCH (04:22)
[2018-10-02 05:11] LABS: Basophils # 0.1 10*3/uL (0.0-0.2); Basophils % 1.4 % (0.0-0.8); Eosinophils # 0.9 10*3/uL (0.0-0.87); Eosinophils % 12.6 % (0.00-10.9); Hematocrit 39.4 VOL% (42.0-52.0); Hemoglobin 12.9 GM/DL (14.0-18.0); Immature Granulocytes % 0.1 %; Immature Granulocytes Absolute 0.01 #; Lymphocytes % 42.8 % (21.2-54.2); Mean Corpuscular HGB Conc 32.7 GM/DL (32-36); Mean Corpuscular Hemoglobin 29 PG (27-34); Mean Corpuscular Volume 88.1 FL (87-102); Mean Platelet Volume 11.6 FL (9.6-12.0); Monocytes # 0.6 10*3/uL (0.11-0.8); Neutrophils # 2.5 10*3/uL (1.4-7.4); Neutrophils % 35.1 % (38.7-73.9); Platelet Count 209 T/CUMM (130-400); Red Blood Count 4.47 MC/CUMM (3.8-5.5); Red Cell Distribution Width 12.9 % (9.3-17.3)
[2018-10-02 05:39] LABS: Atypical Lymphocytes Few; Eosinophils 14 % (0-10); Hypochromasia 1+; Lymphocytes 44 % (20-55); Platelet Estimate Adequate; Segmented Neutrophils 39 % (50-85); Total Cells Counted 100
[2018-10-02 05:46] LABS: Calcium 9.4 MG/DL (8.5-10.1); Osmolality,Calculated 278.3 MOS/KG (273-304); Potassium 3.8 MMOL/L (3.5-5.1)
[2018-10-02 07:41] VITALS: BP 104/69
[2018-10-02] MEDS: levETIRAcetam 500 MG TABLET PO SCH (08:32)
[2018-10-02] MEDS: SERTRALINE 25 MG TABLET PO SCH (08:33)
[2018-10-02] MEDS: risperiDONE 1 MG TABLET PO SCH (08:33)
[2018-10-02] MEDS: PANTOPRAZOLE 40 MG TABLET PO SCH (08:33)
[2018-10-02] MEDS ORDERED: MAGNESIUM CHLORIDE 64 MG TABLET PO SCH (09:00)
[2018-10-02] MEDS: SODIUM CHLORIDE 0.9% 1,000 ML IV SCH (09:37)
== END 2018-10-02 09:51 | disposition home or self-care (01) | DRG 204 ==
LOC: N.ED 09:40 → N.EDINP 13:49 → SUATTDRO 13:49 → N.EDINP 14:50 → N.2E 14:59
PROVIDERS: ADMIT Internal Medicine; ATTEND Internal Medicine